=== PATIENT | female | born 1985 | race Hispanic/Latino ===

== ENCOUNTER 2018-03-02 17:14 | Inpatient (IN) | payer MEDICAID ==
[~2018-03-02] VITALS: Ht 154.9 cm; Wt 93.0 kg
[2018-03-02] MEDS ORDERED: LACTATED RINGERS 1000ML 1,000 ML IV PRN (17:50)
[2018-03-02 18:12] LABS: HEMATOCRIT 39.4 % (36-48); MEAN CORPUSCULAR HEMOGLOBIN 28.4 pg (27.0-33.0); MEAN CORPUSCULAR HGB CONC 33.8 g/dL (32.0-36.0); MEAN CORPUSCULAR VOLUME 84.1 fL (79-99); PLATELET COUNT (AUTO) 213 K/uL (130-400); RED BLOOD CELL COUNT(AUTO) 4.68 MIL/uL (4.00-5.50); RED CELL DISTRIBUTION WIDTH 14.8 % (11.0-15.5)
[2018-03-02 18:15] LABS: APPEARANCE,URINE SL CLOUDY (CLEAR); BILIRUBIN,URINE NEGATIVE (NEGATIVE); COLOR,URINE YELLOW (YELLOW); GLUCOSE, URINE (UA) NEGATIVE (NEGATIVE); KETONES,URINE NEGATIVE (NEGATIVE); LEUKOCYTE ESTERASE ,URINE NEGATIVE (NEGATIVE); NITRATE,URINE NEGATIVE (NEGATIVE); OCCULT BLOOD,URINE NEGATIVE (NEGATIVE); PH,URINE 6.5 (5.0-8.0); PROTEIN,URINE >=300 (NEGATIVE); UROBILINOGEN,URINE 0.2 mg/dL (0.2-1.0)
[2018-03-02 18:22] LABS: CREATININE 0.7 mg/dL (0.5-1.5); POTASSIUM 3.9 mmol/L (3.5-5.1)
[2018-03-02 18:26] LABS: ALBUMIN 2.6 g/dL (3.5-5.0); BILIRUBIN,TOTAL 0.3 mg/dL (0.2-1.0); TOTAL PROTEIN, SERUM 6.6 g/dL (6.0-8.3); URIC ACID 5.3 mg/dL (2.6-7.2)
[2018-03-02 18:29] LABS: INR 0.88 (0.85-1.15); PARTIAL THROMBOPLASTIN TIME 28.2 SEC (26.3-35.5); PROTHROMBIN TIME 9.3 SEC (9.6-11.6)
[2018-03-02] MEDS ORDERED: DINOPROSTONE 10 MG VAGINAL SUPP VG ONE (18:30)
[2018-03-02 18:47] LABS: RBC,URINE 0-1 /HPF (0-1)
[2018-03-02 18:48] LABS: BACTERIA,URINE Few /HPF (None Seen); MUCUS,URINE Few LPF (None Seen); SQUAMOUS EPITHELIAL CELL,UR Moderate /HPF (0-2)
[2018-03-02] MEDS ORDERED: MAGNESIUM SULFATE 1,000 ML IV PRN (20:25)
[2018-03-02] MEDS ORDERED: LACTATED RINGERS 1000ML 1,000 ML IV SCH (20:25)
[2018-03-02] MEDS ORDERED: MAGNESIUM 4GM PREMIX 100ML 100 ML IV ONE (20:28)
[2018-03-02] MEDS ORDERED: MAGNESIUM 4GM PREMIX 100ML 100 ML IV PRN (20:30)
[2018-03-02] MEDS ORDERED: CALCIUM GLUCONATE 1 GM/10 ML VIAL IVP PRN (20:30)
[2018-03-03] MEDS ORDERED: ACETAMINOPHEN 325 MG TAB PO ONE (02:15)
[2018-03-03] MEDS ORDERED: BUTORPHANOL TARTRATE 2 MG/ML IVP ONE (02:15)
[2018-03-03] MEDS ORDERED: OXYTOCIN 10 USP UNITS/ML ONE ×3 (02:47→20:25)
[2018-03-03] MEDS ORDERED: LACTATED RINGERS 1000ML 1,000 ML IV ONE ×2 (02:47→14:53)
[2018-03-03] MEDS ORDERED: OXYTOCIN 10 USP UNITS/ML 20 UNIT in LACTATED RINGERS 1000ML 1,000 ML IV SCH (03:00)
[2018-03-03 08:32] LABS: BASOPHILS % (AUTO) 0.5 % (0.0-5.0); EOSINOPHILS % (AUTO) 0.2 % (0.0-8.0); HEMATOCRIT 40.4 % (36-48); LYMPHOCYTES % (AUTO) 12.5 % (21.0-51.0); MEAN CORPUSCULAR HEMOGLOBIN 29.5 pg (27.0-33.0); MEAN CORPUSCULAR HGB CONC 34.6 g/dL (32.0-36.0); MEAN CORPUSCULAR VOLUME 85.1 fL (79-99); MONOCYTES % (AUTO) 5.3 % (3.0-13.0); NEUTROPHILS % (AUTO) 81.5 % (40.0-77.0); NUCLEATED RED BLOOD CELLS 0.1 % (0.0-0.19); PLATELET COUNT (AUTO) 228 K/uL (130-400); RED BLOOD CELL COUNT(AUTO) 4.75 MIL/uL (4.00-5.50); RED CELL DISTRIBUTION WIDTH 15.2 % (11.0-15.5); WHITE BLOOD COUNT (AUTO) 9.1 K/uL (4.8-10.8)
[2018-03-03 08:44] LABS: CREATININE 0.7 mg/dL (0.5-1.5)
[2018-03-03 08:50] LABS: ALBUMIN 2.6 g/dL (3.5-5.0); BILIRUBIN,TOTAL 0.3 mg/dL (0.2-1.0); TOTAL PROTEIN, SERUM 6.7 g/dL (6.0-8.3); URIC ACID 5.9 mg/dL (2.6-7.2)
[2018-03-03] MEDS ORDERED: CEFAZOLIN SODIUM 1 GM VIAL IVP PRN (09:00)
[2018-03-03] MEDS ORDERED: LACTATED RINGERS 1000ML 1,000 ML IV SCH (09:00)
[2018-03-03 09:06] LABS: INR 0.84 (0.85-1.15); PARTIAL THROMBOPLASTIN TIME 27.2 SEC (26.3-35.5); PROTHROMBIN TIME 8.9 SEC (9.6-11.6)
[2018-03-03] MEDS ORDERED: ACETAMINOPHEN EXTRA STRENGTH 500 MG TABLET ONE (10:00)
[2018-03-03] MEDS: ACETAMINOPHEN EXTRA STRENGTH 500 MG TABLET PO SCH (10:03)
[2018-03-03] MEDS ORDERED: SENSORCAINE/DEXT/PF 0.75% 2ML AMP IJ ONE (15:58)
[2018-03-03] MEDS ORDERED: DURAMORPH PF1 MG/ML 10ML AMP IV ONE (16:05)
[2018-03-03] MEDS ORDERED: CEFAZOLIN SODIUM 1 GM VIAL IVP ONE (16:13)
[2018-03-03] MEDS ORDERED: OXYTOCIN-LR 20 UNITS/1000 ML 1,000 ML IV PRN (16:56)
[2018-03-03] MEDS ORDERED: DIPH,PERTUSS(ACELL),TET VAC/PF 0.5 ML VIAL IM SCH (17:00)
[2018-03-03] MEDS ORDERED: MEASLES/MUMPS/RUBELLA VACCINE, LIVE 0.5 ML/VIAL SQ SCH (17:00)
[2018-03-03] MEDS ORDERED: DEXTROSE 5 %-0.45 % NACL 1,000 ML IV PRN (17:00)
[2018-03-03] MEDS ORDERED: DIPHENHYDRAMINE HCL 25 MG CAPSULE PO PRN (17:00)
[2018-03-03 21:40] VITALS: BP 133/70
[2018-03-03] MEDS ORDERED: NALOXONE HCL 0.4 MG/1 ML ML IVP PRN (22:45)
[2018-03-03] MEDS ORDERED: DiphenhydrAMINE HCL 50 MG/ML VIAL IV PRN (22:45)
[2018-03-03] MEDS ORDERED: MORPHINE SULFATE 4 MG/1ML SYG IVP PRN (22:45)
[2018-03-03] MEDS ORDERED: METOCLOPRAMIDE 10 MG/2 ML VIAL IVP PRN (22:45)
[2018-03-03] MEDS ORDERED: HYDROCODONE/ACETAMINOPHEN 5/325 MG TAB PO PRN (22:45)
[2018-03-03] MEDS ORDERED: ONDANSETRON HCL 4 MG/2 ML VIAL IVP PRN (22:45)
[2018-03-03] MEDS ORDERED: PROMETHAZINE HCL 25 MG/ML 1ML AMPULE IM PRN (22:45)
[2018-03-04] MEDS: IBUPROFEN 600 MG TABLET PO PRN ×3 (00:21→17:35)
[2018-03-04 00:23] VITALS: BP 139/80
[2018-03-04 03:53] VITALS: BP 130/90
[2018-03-04 06:15] LABS: HEPATITIS Bs ANTIGEN SCREEN P Negative (Negative)
[2018-03-04 06:49] LABS: BASOPHILS % (AUTO) 0.6 % (0.0-5.0); EOSINOPHILS % (AUTO) 0.3 % (0.0-8.0); HEMATOCRIT 30.2 % (36-48); LYMPHOCYTES % (AUTO) 13.2 % (21.0-51.0); MEAN CORPUSCULAR HEMOGLOBIN 28.6 pg (27.0-33.0); MEAN CORPUSCULAR HGB CONC 33.8 g/dL (32.0-36.0); MEAN CORPUSCULAR VOLUME 84.5 fL (79-99); MONOCYTES % (AUTO) 6.9 % (3.0-13.0); PLATELET COUNT (AUTO) 171 K/uL (130-400); RED BLOOD CELL COUNT(AUTO) 3.57 MIL/uL (4.00-5.50); RED CELL DISTRIBUTION WIDTH 15.2 % (11.0-15.5); WHITE BLOOD COUNT (AUTO) 10.7 K/uL (4.8-10.8)
[2018-03-04 07:27] VITALS: BP 149/90
[2018-03-04] MEDS ORDERED: LEVO100 PO (08:23)
[2018-03-04] MEDS ORDERED: LEVOTHYROXINE 100 MCG TABLET PO SCH (09:00)
[2018-03-04] MEDS ORDERED: LANOLIN 30GM OINTMENT TP PRN (09:30)
[2018-03-04] MEDS ORDERED: LANOLIN 30GM OINTMENT TP ONE (09:38)
[2018-03-04] MEDS ORDERED: DOCUSATE SODIUM 100 MG CAP PO ONE (09:38)
[2018-03-04] MEDS: SIMETHICONE 80 MG TAB.CHEW PO PRN ×4 (09:42→21:25)
[2018-03-04 11:24] VITALS: BP 148/109
[2018-03-04] MEDS: HYDROCODONE/ACETAMINOPHEN 5/325 MG TAB PO PRN ×2 (13:56→21:29)
[2018-03-04 15:36] VITALS: BP 134/90
[2018-03-04 19:43] VITALS: BP 140/94
[2018-03-04] MEDS: DOCUSATE SODIUM 100 MG CAP PO SCH ×2 (21:00→21:24)
[2018-03-05] MEDS ORDERED: BISACODYL 10 MG SUPP.RECT RC PRN
[2018-03-05] MEDS: IBUPROFEN 600 MG TABLET PO PRN ×2 (00:04→08:24)
[2018-03-05 00:40] VITALS: BP 129/75
[2018-03-05 04:30] VITALS: BP 129/75
[2018-03-05] MEDS ORDERED: TYL3 PO (05:39)
[2018-03-05] MEDS: ACETAMINOPHEN EXTRA STRENGTH 500 MG TABLET PO SCH ×2 (06:00)
[2018-03-05] MEDS ORDERED: LEVOTHYROXINE 100 MCG TABLET PO SCH (06:30)
[2018-03-05 08:00] VITALS: BP 141/87
[2018-03-05] MEDS: DOCUSATE SODIUM 100 MG CAP PO SCH (08:21)
[2018-03-05] MEDS: SIMETHICONE 80 MG TAB.CHEW PO PRN (08:21)
[2018-03-05] MEDS: HYDROCODONE/ACETAMINOPHEN 5/325 MG TAB PO PRN (08:23)
[2018-03-05 12:00] VITALS: BP 146/94
== END 2018-03-05 14:35 | disposition home or self-care (01) | DRG 540 ==
LOC: LDH 17:14 → WSH 03-03 21:50
PROVIDERS: ADMIT Obstetrics & Gynecology; ATTEND Obstetrics & Gynecology
PROC: 3E0234Z Introduction of Serum, Toxoid and Vaccine into Muscle, Percutaneous Approach (ICD-10-PCS; 2018-03-03)
PROC: 3E0134Z Introduction of Serum, Toxoid and Vaccine into Subcutaneous Tissue, Percutaneous Approach (ICD-10-PCS; 2018-03-03)
PROC: 10D00Z1 Extraction of Products of Conception, Low, Open Approach (ICD-10-PCS; principal; 2018-03-03 16:00)
DX: O61.9 Failed induction of labor, unspecified (principal); O14.04 Mild to moderate pre-eclampsia, complicating childbirth; O62.2 Other uterine inertia; Z37.0 Single live birth; Z3A.38 38 weeks gestation of pregnancy; Z23 Encounter for immunization
CPT/HCPCS: 36415; 80053; 81001; 84550; 85025; 85027; 85384; 85610; 85730; 86592; 86850; 86900; 86901; 87340; 90707; 90715; A4344; J0595; J0690; J2274; J2405; J2590; J3475; J3490; J7120

== ENCOUNTER 2018-03-22 17:06 | Emergency (ER) | payer MEDICAID ==
[~2018-03-22 17:06] MED LIST: LEVO100 PO; TYL3 PO
[2018-03-22 17:38] LABS: EOSINOPHILS % (AUTO) 2.8 % (0.0-8.0); HEMATOCRIT 38.7 % (36-48); LYMPHOCYTES % (AUTO) 23.3 % (21.0-51.0); MEAN CORPUSCULAR HEMOGLOBIN 28.5 pg (27.0-33.0); MEAN CORPUSCULAR HGB CONC 33.5 g/dL (32.0-36.0); MEAN CORPUSCULAR VOLUME 84.9 fL (79-99); MONOCYTES % (AUTO) 8.7 % (3.0-13.0); NEUTROPHILS % (AUTO) 64.2 % (40.0-77.0); NUCLEATED RED BLOOD CELLS 0.1 % (0.0-0.19); PLATELET COUNT (AUTO) 346 K/uL (130-400); RED BLOOD CELL COUNT(AUTO) 4.56 MIL/uL (4.00-5.50); RED CELL DISTRIBUTION WIDTH 14.8 % (11.0-15.5); WHITE BLOOD COUNT (AUTO) 5.5 K/uL (4.8-10.8)
[2018-03-22] MEDS ORDERED: KETOROLAC TROMETHAMINE 30MG/ML ONE (17:44)
[2018-03-22 17:45] LABS: CREATININE 0.7 mg/dL (0.5-1.5); POTASSIUM 4.3 mmol/L (3.5-5.1)
== END 2018-03-22 19:47 | disposition home or self-care (01) ==
LOC: EDH 17:06
DX: O90.0 Disruption of cesarean delivery wound (principal); E03.9 Hypothyroidism, unspecified; F41.9 Anxiety disorder, unspecified
CPT/HCPCS: 36415; 76882; 80048; 85025; 96374; 99285; J1885